=== PATIENT | female | born 1960 | race Caucasian/White ===

== ENCOUNTER 2020-05-31 06:02 | Day surgery (SDC) | payer OTHER ==
[2020-05-30 11:09] LABS: COVID AG,FIA SOURCE NASOPHARYNGEAL
[~2020-05-31] VITALS: Ht 157.5 cm; Wt 97.3 kg
[2020-05-31] MEDS ORDERED: PHENYLEPHRINE HCL 2.5% 2 ML OPHTHALMIC SOLUTION ONE (06:08)
[2020-05-31] MEDS ORDERED: CYCLOPENTOLATE HCL 1% 2 ML OPHTHALMIC SOLUTION ONE (06:08)
[2020-05-31] MEDS ORDERED: MOXIFLOXACIN HCL 0.5% 3 ML OPHTHALMIC SOLUTION ONE (06:08)
[2020-05-31] MEDS ORDERED: TETRACAINE HCL/PF 0.5% 4 ML OPHTHALMIC SOLUTION ONE (06:08)
[2020-05-31] MEDS ORDERED: KETOROLAC TROMETHAMINE 0.5% 5 ML OPHTHALMIC SOLUTION ONE (06:08)
[2020-05-31] MEDS ORDERED: TROPICAMIDE 1% 2 ML OPHTHALMIC SOLUTION ONE (06:08)
[2020-05-31] MEDS ORDERED: RINGERS SOLUTION,LACTATED 500 ML IV ONE ×2 (06:08→06:30)
[2020-05-31] MEDS: CYCLOPENTOLATE HCL 1% 2 ML OPHTHALMIC SOLUTION OS SCH ×3 (06:39→06:53)
[2020-05-31] MEDS: MOXIFLOXACIN HCL 0.5% 3 ML OPHTHALMIC SOLUTION OS SCH ×3 (06:39→06:53)
[2020-05-31] MEDS: TROPICAMIDE 1% 2 ML OPHTHALMIC SOLUTION OS SCH ×3 (06:40→06:53)
[2020-05-31] MEDS: PHENYLEPHRINE HCL 2.5% 2 ML OPHTHALMIC SOLUTION OS SCH ×3 (06:40→06:53)
[2020-05-31] MEDS: KETOROLAC TROMETHAMINE 0.5% 5 ML OPHTHALMIC SOLUTION OS SCH ×3 (06:40→06:53)
[2020-05-31] MEDS ORDERED: GABA-1181 PO (06:52)
[2020-05-31] MEDS ORDERED: ATOR20TA65 PO (06:52)
[2020-05-31] MEDS ORDERED: HYDR25TA2 PO (06:52)
[2020-05-31] MEDS ORDERED: TETRACAINE HCL/PF 0.5% 4 ML OPHTHALMIC SOLUTION OS ONE ×2 (07:00→12:00)
[2020-05-31] MEDS ORDERED: FERR-89 PO (07:04)
[2020-05-31] MEDS ORDERED: AMLO-258 PO (07:04)
[2020-05-31] MEDS ORDERED: METF-960 PO (07:04)
[2020-05-31] MEDS ORDERED: ASPI81TA87 PO (07:04)
[2020-05-31] MEDS ORDERED: FAMO20 PO (07:04)
[2020-05-31] MEDS ORDERED: LISI-894 PO (07:04)
[2020-05-31] MEDS ORDERED: TRAZ-252 PO (07:06)
[2020-05-31] MEDS ORDERED: ACET-3385 PO (07:06)
[2020-05-31 07:07] LABS: GLUCOMETER DEV NAME(LOC) SDS.; GLUCOSE,POINT OF CARE 136 MG/DL (70-110)
[2020-05-31] MEDS ORDERED: ACET-66 PO (07:07)
[2020-05-31] MEDS ORDERED: MIDAZOLAM HCL 2 MG/2 ML VIAL IVP ONE (12:00)
[2020-05-31] MEDS ORDERED: HYALURONATE SOD/CHONDROITIN SOD 0.5 ML VIAL IO ONE (12:00)
[2020-05-31] MEDS ORDERED: BALANCED SALT 15 ML OPHTHALMIC IRRIG.SOLN OS ONE (12:00)
[2020-05-31] MEDS ORDERED: FentaNYL CITRATE PF 100 MCG/2 ML VIAL IVP ONE (12:00)
[2020-05-31] MEDS ORDERED: NEOMYCIN/POLYMYXIN B/DEXAMETH 3.5 GM OPHTHALMIC OINTMENT OS ONE (12:00)
[2020-05-31] MEDS ORDERED: POVIDONE-IODINE 10% 15 ML SOLUTION UD TP ONE (12:00)
[2020-05-31] MEDS ORDERED: EPINEPHrine 1:1,000 [1 MG/ML] AMP IM ONE (12:00)
[2020-05-31] MEDS ORDERED: LIDOCAINE/PF 1% 2 ML VIAL IM ONE (12:00)
[2020-05-31] MEDS ORDERED: PrednisoLONE ACETATE 1% 5 ML OPHTHALMIC SUSPENSION OS ONE (12:00)
== END 2020-05-31 08:20 | disposition home or self-care (01) ==
LOC: SURGERY 06:02
PROVIDERS: ATTEND Ophthalmology
DX: E11.36 Type 2 diabetes mellitus with diabetic cataract (principal); H25.12 Age-related nuclear cataract, left eye; I10 Essential (primary) hypertension; Z86.73 Personal history of transient ischemic attack (TIA), and cerebral infarction without residual deficits; D64.9 Anemia, unspecified; Z98.890 Other specified postprocedural states
CPT/HCPCS: 66984; 82962; 87426; 93005; C9803; J0171; J2250; J3010; J3490; J7120; V2632